=== PATIENT | female | born 1985 | race Two or more races ===

== ENCOUNTER → 2021-08-09 | Outpatient (CLI) | payer MEDICAID ==
[~2021-08-09] MED LIST: BECL80AE11 IN; CHOL500033 PO; IOHEXOL 350 MG/ML 100ML IJ ONE; LEVA0.6320 IN; LEVA1AER IN; LIDOCAINE 2%HCL (LOCAL ANESTH.) INJ 20ML MDV ONE; MAGN400T40 PO; MECL25TA18 PO; METF-929 PO; OMEP20TA PO; SEMA2INJ SC; SOTA80TA PO; TIOT1AER2 IN
[2021-08-09 10:18] VITALS: BP 126/86
[2021-08-09 10:53] VITALS: BP 127/87
[2021-08-09 11:47] LABS: INR 0.99 (0.9-1.15); Partial Thromboplastin Time 27.9 sec (23.6-33.0)
[2021-08-09 11:52] LABS: Potassium 3.7 mmol/L (3.5-5.1)
[2021-08-09 12:05] LABS: Basophils # (auto) 0 10 ^3/uL (0-0.2); Basophils % (auto) 0.7 % (0.0-2.0); Eosinophils # (auto) 0.5 10 ^3/uL (0-0.8); Eosinophils % (auto) 7.1 % (0.0-7.0); Lymphocytes # (auto) 2.1 10 ^3/uL (0.4-5.4); Lymphocytes % (auto) 31.6 % (10.0-50.0); Mean Corpuscular Hemoglobin 29.6 pg (28.0-32.0); Mean Corpuscular Hgb Conc. 34.1 g/dL (32.0-36.0); Mean Corpuscular Volume 86.6 fL (80.0-100.0); Monocytes # (auto) 0.4 10 ^3/uL (0-1.3); Monocytes % (auto) 6.7 % (0.0-12.0); Neutrophils # (auto) 3.5 10 ^3/uL (1.6-8.6); Neutrophils % (auto) 53.9 % (37.0-80.0); Nucleated Red Blood Cells % 0.1 %; Red Blood Cells 4.74 10^6/uL (4.0-5.20); Red Cell Distribution Width 13.3 % (11.8-14.3); White Blood Cell 6.5 10^3/uL (4.4-10.8)
== END | disposition home or self-care (01) ==
LOC: Rad HDHVI 10:10
PROVIDERS: ATTEND Internal Medicine Cardiovascular Disease
DX: Z01.812 Encounter for preprocedural laboratory examination (principal); R06.02 Shortness of breath; R07.9 Chest pain, unspecified; I48.91 Unspecified atrial fibrillation; R00.2 Palpitations
CPT/HCPCS: 36415; 80048; 84702; 85025; 85610; 85730; 93005; G0463

== ENCOUNTER 2021-08-11 08:17 | Day surgery (SDC) | payer MEDICAID ==
[~2021-08-11] VITALS: Ht 170.2 cm; Wt 108.0 kg
[~2021-08-11 08:17] MED LIST changes: -IOHEXOL 350 MG/ML 100ML IJ ONE; -LIDOCAINE 2%HCL (LOCAL ANESTH.) INJ 20ML MDV ONE
[2021-08-11] MEDS ORDERED: IOHEXOL 350 MG/ML 100ML IJ ONE (08:18)
[2021-08-11] MEDS ORDERED: LIDOCAINE 1% HCL (LOCAL ANESTH.) INJ 20ML MDV IJ ONE (08:18)
[2021-08-11] MEDS ORDERED: HEPARIN IN NS 1000U/500ML (2UNIT/ML) 500 ML BAG/KIT IV ONE (08:18)
[2021-08-11] MEDS ORDERED: ANGIOMAX 250 MG VIAL IV ONE (12:00)
[2021-08-11] MEDS ORDERED: fentaNYL CITRATE 100 MCG/2 ML VL ONE ×2 (12:00→12:21)
[2021-08-11] MEDS ORDERED: MIDAZOLAM HCL 2MG/2ML 2ml VIAL (1mg/ml) ONE (12:01)
[2021-08-11] MEDS ORDERED: SODIUM CHL 0.9% 0 ML ONE (12:01)
== END 2021-08-11 14:45 | disposition home or self-care (01) ==
LOC: CATH 08:17
PROVIDERS: ATTEND Internal Medicine Cardiovascular Disease
DX: I25.10 Atherosclerotic heart disease of native coronary artery without angina pectoris (principal); I48.0 Paroxysmal atrial fibrillation; I11.0 Hypertensive heart disease with heart failure; I50.20 Unspecified systolic (congestive) heart failure; E11.9 Type 2 diabetes mellitus without complications; J45.909 Unspecified asthma, uncomplicated; Z92.21 Personal history of antineoplastic chemotherapy; Z20.822 Contact with and (suspected) exposure to COVID-19
CPT/HCPCS: 93458; C1760; C1894; J1644; J2001; J2250; J3010; Q9967; U0003; 99152